=== PATIENT | male | born 1945 | race Asian ===

== ENCOUNTER 2019-10-04 15:26 | Emergency (ER) | payer OTHER ==
[~2019-10-04] VITALS: Ht 165.1 cm; Wt 68.5 kg
[2019-10-04 15:47] VITALS: BP 151/75; Ht 165.1 cm; Wt 68.5 kg
== END 2019-10-04 17:34 | disposition home or self-care (01) ==
LOC: ED 15:26
DX: T16.1XXA Foreign body in right ear, initial encounter (principal); I10 Essential (primary) hypertension; W45.8XXA Other foreign body or object entering through skin, initial encounter; Y93.89 Activity, other specified; Y92.89 Other specified places as the place of occurrence of the external cause; Y99.8 Other external cause status